=== PATIENT | male | born 1950 | race African-American/Black ===

== ENCOUNTER 2017-04-20 16:23 | Inpatient (IN) | payer OTHER ==
[2017-04-20 16:49] VITALS: BMI 20.7
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
[2017-04-20] MEDS ORDERED: P-EPHED 60MG/TRIPROLIDI 2.5MG TABLET PO PRN (20:49)
[2017-04-20] MEDS ORDERED: MAGNESIUM CITRATE 300 ML BOTTLE PO PRN (20:49)
[2017-04-20] MEDS ORDERED: MENTHOL/PHENOL 1 EACH UD MM PRN (20:49)
[2017-04-20] MEDS ORDERED: NICOTINE POLACRILEX 2 MG GUM BUC PRN (20:49)
[2017-04-20] MEDS ORDERED: guaiFENesin/D-METHORPHAN HB 10 ML UNIT-DOSE CUPS PO PRN (20:49)
[2017-04-20] MEDS ORDERED: IBUPROFEN 400 MG TABLET (FP) PO PRN (20:49)
[2017-04-20] MEDS ORDERED: ACETAMINOPHEN 325 MG TABLET (FP) PO PRN (20:49)
[2017-04-20] MEDS ORDERED: chlordiazePOXIDE HCL 25 MG CAPSULE PO PRN (20:49)
[2017-04-20] MEDS ORDERED: diphenhydrAMINE HCL 50 MG CAPSULE PO PRN (20:49)
[2017-04-20] MEDS ORDERED: MAG HYDROX/AL HYDROX/SIMETH 30 ML UNIT-DOSE CUP PO PRN (20:49)
[2017-04-20] MEDS ORDERED: MAGNESIUM HYDROX 2400MG/30ML ORAL SUSPENSION 30 ML CUP PO PRN (20:49)
[2017-04-20] MEDS ORDERED: hydrOXYzine PAMOATE 50 MG CAPSULE (FP) PO PRN (20:49)
[2017-04-20] MEDS ORDERED: LOPERAMIDE HCL 2 MG CAPSULE PO PRN (20:49)
[2017-04-20] MEDS: BRIMONIDINE TARTRATE 0.15% OPHTHALMIC 5 ML BOTTLE OU SCH (22:54)
[2017-04-20] MEDS: LATANOPROST 0.005% OPHTH SOLN 2.5ML BOTTLE OU SCH (22:54)
[2017-04-20] MEDS: THIAMINE HCL 100 MG TABLET (FP) PO SCH (22:54)
[2017-04-20] MEDS: NICOTINE 14 MG/24 HOURS TOPICAL PATCH TD SCH (22:54)
[2017-04-20] MEDS: chlordiazePOXIDE HCL 25 MG CAPSULE PO SCH (22:55)
[2017-04-21 00:05] LABS: URINE APPEARANCE CLEAR; URINE BILIRUBIN NEGATIVE (NEGATIVE); URINE BLOOD NEGATIVE (NEGATIVE); URINE COLOR AMBER; URINE GLUCOSE (UA) NEGATIVE (NEGATIVE); URINE KETONE NEGATIVE (NEGATIVE); URINE LEUK ESTERASE NEGATIVE (NEGATIVE); URINE NITRITE NEGATIVE (NEGATIVE); URINE PROTEIN NEGATIVE (NEGATIVE); URINE UROBILINOGEN NEGATIVE E.U./dl (0.2-1.0)
[2017-04-21] MEDS: BRIMONIDINE TARTRATE 0.15% OPHTHALMIC 5 ML BOTTLE OU SCH ×3 (05:50→22:35)
[2017-04-21] MEDS: chlordiazePOXIDE HCL 25 MG CAPSULE PO SCH ×4 (05:51→22:35)
--- NOTE | 2017-04-21 09:58 | EKG ---
Test Reason : Blood Pressure : / mmHG Vent. Rate : 073 BPM Atrial Rate : 073 BPM P-R Int : 214 ms QRS Dur : 094 ms QT Int : 448 ms P-R-T Axes : 070 012 070 degrees QTc Int : 493 ms SINUS RHYTHM WITH 1ST DEGREE A-V BLOCK WITH FREQUENT PREMATURE VENTRICULAR COMPLEXES POSSIBLE LEFT ATRIAL ENLARGEMENT LEFT VENTRICULAR HYPERTROPHY PROLONGED QT ABNORMAL ECG NO PREVIOUS ECGS AVAILABLE Confirmed by NURA COLÓN, RANJIT ([id number]) on 04/21/2017 9:58:13 AM Referred By: Confirmed By:RANJIT LYMAN MD
[2017-04-21] MEDS: PRENATAL VITAMINS W/ FOLIC ACID TABLET (FP) PO SCH (10:07)
[2017-04-21] MEDS: NICOTINE 14 MG/24 HOURS TOPICAL PATCH TD SCH (10:07)
[2017-04-21 10:16] LABS: MCHC 33.7 g/dl (32.0-35.9); MEAN CELL VOLUME 103.7 fl (80-96); MEAN PLT VOLUME 7.9 fl (7.5-11.1); PLATELET COUNT 176 K/MM3 (134-434); RDW 12.5 % (11.9-15.9); WHITE BLOOD COUNT 2.8 K/mm3 (4.0-10.0)
[2017-04-21 11:02] LABS: ALK PHOS 68 U/L (45-117); ANION GAP 6 (8-16); BILIRUBIN,TOTAL 0.4 mg/dL (0.2-1.0); CO2 28 mmol/L (21-32); CREATININE 0.8 mg/dL (0.7-1.3); GLUCOSE,RANDOM 80 mg/dL (74-106); SGOT/AST 61 U/L (15-37); SGPT/ALT 77 U/L (12-78); TOT PROT 6.2 g/dl (6.4-8.2)
[2017-04-21] MEDS: PATIENT'S OWN MEDICATION (NON-FORMULARY) (Dorzolamide Hcl/Timolol Maleat [Cosopt Eye Drops OU SCH (12:38)
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
[2017-04-21] MEDS ORDERED: TIMOLOL 0.5% OPHTHALMIC SOL 5 ML BOTTLE OU SCH (14:00)
[2017-04-21] MEDS ORDERED: DORZOLAMIDE 2% HCL OPHTHALMIC SOLUTION 10 ML BOTTLE OU SCH (14:00)
--- NOTE | 2017-04-21 18:12 | PN ---
[facility] CIWA - CIWA Score Nausea/Vomitin-No Nausea/No Vomiting Muscle Tremors: 4-Moderate,w/Arms Extend Anxiety: 3 Agitation: 2 Paroxysmal Sweats: 3 Orientation: 0-Oriented Tacttile Disturbances: 0-None Auditory Disturbances: 3-Moderate Harsh/Frighten Visual Disturbances: 1-Very Mild Sensitivity Headache: 0-None Present CIWA-Ar Total Score: 16 S Progress Note (SOAP) Subjective: Tremors, Body Aches, Stomach Cramping, Interrupted Sleep. Objective: PT. A & O X 3. NO ACUTE DISTRESS. 04/21/17 18:09 Vital Signs Temperature 98.7 F 04/21/17 17:15 Pulse Rate 73 04/21/17 17:15 Respiratory Rate 18 04/21/17 17:15 Blood Pressure 123/80 04/21/17 17:15 O2 Sat by Pulse Oximetry (%) Laboratory Tests 04/20/17 04/21/17 04/21/17 22:07 08:00 08:00 WBC 2.8 L RBC 4.01 Hgb 14.0 Hct 41.6 MCV 103.7 H MCHC 33.7 RDW 12.5 Plt Count 176 MPV 7.9 Sodium 142 Potassium 4.1 Chloride 108 H Carbon Dioxide 28 Anion Gap 6 L BUN 14 D Creatinine 0.8 Creat Clearance w eGFR > 60 Random Glucose 80 Calcium 9.0 Total Bilirubin 0.4 AST 61 H ALT 77 Alkaline Phosphatase 68 D Total Protein 6.2 L Albumin 3.0 L Urine Color Carissa Urine Appearance Clear Urine pH 5.0 Ur Specific [place] > 1.030 H Urine Protein Negative Urine Glucose (UA) Negative Urine Ketones Negative Urine Blood Negative Urine Nitrite Negative Urine Bilirubin Negative Urine Urobilinogen Negative Ur Leukocyte Esterase Negative LABS NOTED. Assessment: 04/21/17 18:10 WITHDRAWAL SYMPTOMS. Plan: CONTINUE DETOX. ADVISED PATIENT TO FOLLOW-UP WITH [employer]LE INSTALLER AFTER DISCHARGE FROM DETOX FOR GENERAL MEDICAL ASSESSMENT AND FOR LOW ADMISSION WBC LEVEL.
[2017-04-21] MEDS: THIAMINE HCL 100 MG TABLET (FP) PO SCH (22:35)
[2017-04-21] MEDS: LATANOPROST 0.005% OPHTH SOLN 2.5ML BOTTLE OU SCH (22:35)
[2017-04-21] MEDS: DORZOLAMIDE 2% HCL OPHTHALMIC SOLUTION 10 ML BOTTLE OU SCH (22:35)
[2017-04-21] MEDS: TIMOLOL 0.5% OPHTHALMIC SOL 5 ML BOTTLE OU SCH (22:35)
[2017-04-22] MEDS: BRIMONIDINE TARTRATE 0.15% OPHTHALMIC 5 ML BOTTLE OU SCH ×3 (05:46→22:08)
[2017-04-22] MEDS: chlordiazePOXIDE HCL 25 MG CAPSULE PO SCH ×2 (05:46→10:09)
[2017-04-22] MEDS: DORZOLAMIDE 2% HCL OPHTHALMIC SOLUTION 10 ML BOTTLE OU SCH ×2 (09:27→22:09)
[2017-04-22] MEDS: TIMOLOL 0.5% OPHTHALMIC SOL 5 ML BOTTLE OU SCH ×2 (09:27→22:08)
[2017-04-22] MEDS: PRENATAL VITAMINS W/ FOLIC ACID TABLET (FP) PO SCH (10:09)
[2017-04-22] MEDS: NICOTINE 14 MG/24 HOURS TOPICAL PATCH TD SCH (10:09)
[2017-04-22] MEDS ORDERED: diazePAM 5 MG TABLET PO PRN (11:18)
[2017-04-22] MEDS: diazePAM 5 MG TABLET PO SCH ×2 (13:53→22:08)
--- NOTE | 2017-04-22 15:02 | PN ---
[facility] Progress Note (SOAP) Subjective: Stomach pain (secondary to librium and requesting librium changed as he stopped taking it), interrupted sleep, nausea, sweating Objective: 04/22/17 15:00 Last Vital Signs Temp Pulse Resp BP Pulse Ox 96.6 F L 68 18 143/93 04/22/17 13:21 04/22/17 13:21 04/22/17 13:21 04/22/17 13:21 Laboratory Tests 04/20/17 04/21/17 04/21/17 22:07 08:00 08:00 WBC 2.8 L RBC 4.01 Hgb 14.0 Hct 41.6 MCV 103.7 H MCHC 33.7 RDW 12.5 Plt Count 176 MPV 7.9 Sodium 142 Potassium 4.1 Chloride 108 H Carbon Dioxide 28 Anion Gap 6 L BUN 14 D Creatinine 0.8 Creat Clearance w eGFR > 60 Random Glucose 80 Calcium 9.0 Total Bilirubin 0.4 AST 61 H ALT 77 Alkaline Phosphatase 68 D Total Protein 6.2 L Albumin 3.0 L Urine Color Carissa Urine Appearance Clear Urine pH 5.0 Ur Specific [place] > 1.030 H Urine Protein Negative Urine Glucose (UA) Negative Urine Ketones Negative Urine Blood Negative Urine Nitrite Negative Urine Bilirubin Negative Urine Urobilinogen Negative Ur Leukocyte Esterase Negative RPR Titer 04/21/17 08:00 WBC RBC Hgb Hct MCV MCHC RDW Plt Count MPV Sodium Potassium Chloride Carbon Dioxide Anion Gap BUN Creatinine Creat Clearance w eGFR Random Glucose Calcium Total Bilirubin AST ALT Alkaline Phosphatase Total Protein Albumin Urine Color Urine Appearance Urine pH Ur Specific [place] Urine Protein Urine Glucose (UA) Urine Ketones Urine Blood Urine Nitrite Urine Bilirubin Urine Urobilinogen Ur Leukocyte Esterase RPR Titer Nonreactive Labs noted Assessment: 04/22/17 15:01 Withdrawal symptoms Patient reports h/o GERD and takes ranitidine 150mg PO BID; patient requesting to resume ranitidine Plan: Continue detox Band Aid Machine Operator spoke with Dr. Sandoval regarding patient's request to change librium due to stomach pain GERD: ranitidine 150mg PO bid
[2017-04-22] MEDS ORDERED: RANITIDINE HCL 150 MG TABLET (FP) PO SCH (22:00)
[2017-04-22] MEDS: THIAMINE HCL 100 MG TABLET (FP) PO SCH (22:08)
[2017-04-22] MEDS: LATANOPROST 0.005% OPHTH SOLN 2.5ML BOTTLE OU SCH (22:09)
[2017-04-22] MEDS ORDERED: chlordiazePOXIDE 5 MG CAPSULE PO SCH (23:00)
[2017-04-23] MEDS: BRIMONIDINE TARTRATE 0.15% OPHTHALMIC 5 ML BOTTLE OU SCH (05:34)
[2017-04-23 06:47] VITALS: BP 135/93; PULSE 69
--- NOTE | 2017-04-23 08:46 | DS ---
[facility] Detox Discharge Summary Admission Date: 04/20/17 Discharge Date: 04/23/17 - History Present History: Alcohol Dependence, Cocaine Dependence Pertinent Past History: BPH PTSD - Physical Exam Results Vital Signs: Vital Signs Temperature 96.8 F L 04/23/17 06:46 Pulse Rate 69 04/23/17 06:46 Respiratory Rate 16 04/23/17 06:46 Blood Pressure 135/93 04/23/17 06:46 O2 Sat by Pulse Oximetry (%) Pertinent Admission Physical Exam Findings: Withdrawal sx. Laboratory Last Values WBC 2.8 K/mm3 (4.0-10.0) L 04/21/17 08:00 RBC 4.01 M/mm3 (4.00-5.60) 04/21/17 08:00 Hgb 14.0 GM/dL (11.7-16.9) 04/21/17 08:00 Hct 41.6 % (35.4-49) 04/21/17 08:00 MCV 103.7 fl (80-96) H 04/21/17 08:00 MCHC 33.7 g/dl (32.0-35.9) 04/21/17 08:00 RDW 12.5 % (11.9-15.9) 04/21/17 08:00 Plt Count 176 K/MM3 (134-434) 04/21/17 08:00 MPV 7.9 fl (7.5-11.1) 04/21/17 08:00 Sodium 142 mmol/L (136-145) 04/21/17 08:00 Potassium 4.1 mmol/L (3.5-5.1) 04/21/17 08:00 Chloride 108 mmol/L (98-107) H 04/21/17 08:00 Carbon Dioxide 28 mmol/L (21-32) 04/21/17 08:00 Anion Gap 6 (8-16) L 04/21/17 08:00 BUN 14 mg/dL (7-18) D 04/21/17 08:00 Creatinine 0.8 mg/dL (0.7-1.3) 04/21/17 08:00 Creat Clearance w eGFR > 60 (>60) 04/21/17 08:00 Random Glucose 80 mg/dL (74-106) 04/21/17 08:00 Calcium 9.0 mg/dL (8.5-10.1) 04/21/17 08:00 Total Bilirubin 0.4 mg/dL (0.2-1.0) 04/21/17 08:00 AST 61 U/L (15-37) H 04/21/17 08:00 ALT 77 U/L (12-78) 04/21/17 08:00 Alkaline Phosphatase 68 U/L (45-117) D 04/21/17 08:00 Total Protein 6.2 g/dl (6.4-8.2) L 04/21/17 08:00 Albumin 3.0 g/dl (3.4-5.0) L 04/21/17 08:00 Urine Color Carissa 04/20/17 22:07 Urine Appearance Clear 04/20/17 22:07 Urine pH 5.0 (5.0-8.0) 04/20/17 22:07 Ur Specific [place] > 1.030 (1.005-1.025) H 04/20/17 22:07 Urine Protein Negative (NEGATIVE) 04/20/17 22:07 Urine Glucose (UA) Negative (NEGATIVE) 04/20/17 22:07 Urine Ketones Negative (NEGATIVE) 04/20/17 22:07 Urine Blood Negative (NEGATIVE) 04/20/17 22:07 Urine Nitrite Negative (NEGATIVE) 04/20/17 22:07 Urine Bilirubin Negative (NEGATIVE) 04/20/17 22:07 Urine Urobilinogen Negative E.U./dl (0.2-1.0) 04/20/17 22:07 Ur Leukocyte Esterase Negative (NEGATIVE) 04/20/17 22:07 RPR Titer Nonreactive (NONREACTIVE) 04/21/17 08:00 labs noted - Treatment Hospital Course: Detoxed Safely, Discharged Condition Good Patient [facility] - Medication Discharge Medications: Ambulatory Orders Brimonidine Tartrate [Alphagan 0.15% -] 1 drop OU TID 04/20/17 Buspirone HCl [Buspar -] 10 mg PO DAILY 04/20/17 Dorzolamide HCl/Timolol Maleat [Cosopt Eye Drops] 1 drop OU TID 04/20/17 Latanoprost 0.005% Eye Drops [Xalatan 0.005% Eye Drops -] 1 drop OU HS 04/20/17 Terazosin HCl [Hytrin] 2 mg PO DAILY 04/20/17 Trazodone HCl [Desyrel -] 50 mg PO HS 04/20/17 - Diagnosis (1) Alcohol dependence with uncomplicated withdrawal Current Visit: Yes Status: Acute (2) BPH (benign prostatic hyperplasia) Current Visit: Yes Status: Acute (3) Cocaine dependence, uncomplicated Current Visit: Yes Status: Acute (4) History of positive PPD Current Visit: Yes Status: Acute (5) Nicotine dependence Current Visit: Yes Status: Acute Qualifiers: Nicotine product type: cigarettes Substance use status: uncomplicated Qualified Code(s): F17.210 - Nicotine dependence, cigarettes, uncomplicated (6) Low-tension glaucoma, left eye, stage unspecified Current Visit: Yes Status: Chronic (7) Post traumatic stress disorder (PTSD) Current Visit: Yes Status: Chronic - AMA Did Patient Leave Against Medical Advice: No
--- NOTE | 2017-04-23 09:03 | PN ---
[facility] Progress Note Note: Pt. detox protocol was changed from librium to valium.Withdrawal sx. have resolved.[facility] D/C pt. today
[2017-04-23 09:52] VITALS: TEMP 96.6
[2017-04-23] MEDS ORDERED: diazePAM 5 MG TABLET PO SCH (10:00)
[2017-04-23] MEDS ORDERED: chlordiazePOXIDE HCL 10 MG CAPSULE PO SCH (23:00)
[2017-04-24] MEDS ORDERED: diazePAM 5 MG TABLET PO SCH (10:00)
[2017-04-26 00:06] LABS: HCV LOG 10 5.312 (.)
== END 2017-04-23 09:26 | disposition home or self-care (01) | DRG 897 ==
LOC: YASAS 16:23 → Y3N 21:53
PROVIDERS: ADMIT Internal Medicine; ATTEND Internal Medicine
PROC: HZ2ZZZZ Detoxification Services for Substance Abuse Treatment (ICD-10-PCS; principal; 2017-04-20)
DX: F19.230 Other psychoactive substance dependence with withdrawal, uncomplicated (principal); F14.20 Cocaine dependence, uncomplicated; F10.230 Alcohol dependence with withdrawal, uncomplicated; F17.210 Nicotine dependence, cigarettes, uncomplicated; F43.10 Post-traumatic stress disorder, unspecified; N40.0 Benign prostatic hyperplasia without lower urinary tract symptoms; I49.9 Cardiac arrhythmia, unspecified; H40.122 Low-tension glaucoma, left eye; K21.9 Gastro-esophageal reflux disease without esophagitis; B18.2 Chronic viral hepatitis C; R76.11 Nonspecific reaction to tuberculin skin test without active tuberculosis
CPT/HCPCS: 36415; 80053; 81003; 85027; 86593; 86803; 87522; 93005; 93010